=== PATIENT | male | born 1960 | race Caucasian/White ===

== ENCOUNTER → 2016-11-10 | Outpatient (CLI) | payer BC ==
[~2016-11-10] MED LIST: AMLO-110 PO; AMT50 PO; ASPCH81 PO; DICL50TA3 PO; GABA1CAP4 PO; METO25TA56 PO; MULT-506 PO; OMEP40CA PO; SALI1SPR3
[2016-11-10 16:58] LABS: HEMATOCRIT 49.1 % (42-52); MEAN CELL VOLUME 91.6 fL (80-100); MEAN CORPUSCULAR HEMOGLOBIN 32.8 pg (25-34); MEAN CORPUSCULAR HGB CONC 35.8 g/dl (32-36); MEAN PLATELET VOLUME 10.7 fL (7.4-10.4); PLATELET COUNT 181 K/uL (130-400); RED BLOOD COUNT 5.36 M/uL (4.7-6.1)
[2016-11-10 17:07] LABS: BLOOD UREA NITROGEN 18 mg/dl (7-18); BUN/CREATININE RATIO 17.5 (10-20); CALCIUM 9.5 mg/dl (8.5-10.1); CARBON DIOXIDE 29 mmol/L (21-32); CHLORIDE 102 mmol/L (98-107); GLUCOSE 155 mg/dl (70-99); POTASSIUM 4.2 mmol/L (3.5-5.1); SODIUM 138 mmol/L (136-145); URIC ACID 5.6 mg/dl (2.6-7.2)
[2016-11-10 17:17] LABS: CHOLESTEROL 137 mg/dl (0-200); CHOLESTEROL/HDL RATIO 3.2; HDL CHOLESTEROL 43 mg/dl; LDL CHOLESTEROL CALCULATED 67 mg/dl; PROSTATE SPECIFIC ANTIGEN 0.177 ng/ml (0.000-4.000); TRIGLYCERIDES 133 mg/dl (0-150); VERY LOW DENSITY LIPOPROT CALC 27 mg/dl
== END | disposition home or self-care (01) ==
LOC: C.LABBC 12:23
PROVIDERS: ATTEND Internal Medicine Cardiovascular Disease
DX: N40.0 Benign prostatic hyperplasia without lower urinary tract symptoms (principal); M10.9 Gout, unspecified; I10 Essential (primary) hypertension

== ENCOUNTER → 2017-02-05 | Outpatient (CLI) | payer BC ==
[~2017-02-05] MED LIST changes: -AMT50 PO
--- NOTE | 2017-02-05 10:57 | DIAGNOSTIC IMAGING REPORT ---
CERVICAL SPINE MRI HISTORY: Neck pain. CORD COMPRESSION TECHNIQUE: Multiplanar multisequence MRI of the cervical spine was performed without the use of contrast. COMPARISON STUDY: Cervical spine MRI 07/26/2015. FINDINGS: Slight reversal of the normal lordotic curvature, unchanged. Alignment is intact. No fracture or subluxation. Prevertebral soft tissues and the C1-C2 interval are well-maintained. Cervical spinal cord demonstrates a normal signal intensity. Mild to moderate disc space narrowing at C5-C6, unchanged. C2-C3: No significant central canal or neural foraminal narrowing. C3-C4: Small broad-based posterior disc osteophyte complex with a focal central annular tear. This results in near complete effacement of the anterior thecal sac without significant cord deformity. No neural foraminal narrowing. C4-C5: Small broad-based posterior disc osteophyte complex resulting in partial effacement of the anterior thecal sac without cord deformity. No neural foraminal narrowing. C5-C6: No change in the left paracentral disc osteophyte complex which results in mild left anterior cord deformity. There is severe left and mild right neural foraminal narrowing, unchanged. C6-C7: Mild left-sided neural foraminal narrowing, unchanged. No significant central canal or right-sided neural foraminal narrowing. C7-T1: No significant central canal or neural foraminal narrowing. IMPRESSION: 1. Overall, no significant change in the multilevel cervical spondylosis as described above. This is most pronounced at the C5-C6 level. 2. Slight reversal of the normal lordotic curvature. Electronically signed by: Amado Tena M.D. 02/05/2017 10:56 AM Dictated Date/Time: 02/05/2017 10:47 AM
== END | disposition home or self-care (01) ==
LOC: C.MRIBC 09:49
PROVIDERS: ATTEND Orthopaedic Surgery Orthopaedic Surgery of the Spine
DX: M47.812 Spondylosis without myelopathy or radiculopathy, cervical region (principal)

== ENCOUNTER → 2017-06-01 | Outpatient (CLI) | payer BC ==
[2017-06-01 14:20] LABS: ESTIMATED AVERAGE GLUCOSE 103 mg/dl; HA1C FLAG Normal (Normal)
[2017-06-01 14:38] LABS: BLOOD UREA NITROGEN 16 mg/dl (7-18); BUN/CREATININE RATIO 16.4 (10-20); CALCIUM 9.1 mg/dl (8.5-10.1); CARBON DIOXIDE 26 mmol/L (21-32); CHLORIDE 102 mmol/L (98-107); GLUCOSE 110 mg/dl (70-99); SODIUM 136 mmol/L (136-145)
[2017-06-01 14:41] LABS: CHOLESTEROL 155 mg/dl (0-200); CHOLESTEROL/HDL RATIO 2.3; HDL CHOLESTEROL 67 mg/dl; LDL CHOLESTEROL CALCULATED 74 mg/dl; TRIGLYCERIDES 70 mg/dl (0-150); VERY LOW DENSITY LIPOPROT CALC 14 mg/dl
== END | disposition home or self-care (01) ==
LOC: C.LABBC 11:57
PROVIDERS: ATTEND Internal Medicine Cardiovascular Disease
DX: I10 Essential (primary) hypertension (principal); R73.9 Hyperglycemia, unspecified

== ENCOUNTER → 2017-09-25 | Outpatient (CLI) | payer OTHER ==
--- NOTE | 2017-09-25 18:15 | DIAGNOSTIC IMAGING REPORT ---
MRI OF THE CERVICAL SPINE WITHOUT IV CONTRAST CLINICAL HISTORY: Cervicalgia. COMPARISON STUDY: MRI of the cervical spine dated 02/05/2017. TECHNIQUE: MRI of the cervical spine is performed utilizing various T1 and T2 weighted sequences in the axial and sagittal planes. IV contrast was not administered for this examination. The examination is modestly compromised by motion artifact. FINDINGS: Cervical spine: Vertebral body height and alignment are maintained throughout the cervical spine. There is straightening of cervical lordosis with reversal centered at C5. The atlantodental articulation appears maintained. The spinous processes are intact. No destructive bony lesion is identified. Intervertebral discs: Mild degenerative disc desiccation is seen throughout the cervical spine. There is moderate loss of height at C5-C6. Only mild loss of height is seen at the remaining cervical levels. Spinal cord: The cervical spinal cord is normal in morphology and signal intensity. C2-C3: A tiny posterior disc osteophyte complex is of no consequence. The central canal and neural foramina are patent. C3-C4: A posterior disc osteophyte complex eccentric to the right abuts the ventral cord. The neural foramina are widely patent. C4-C5: Unremarkable. C5-C6: A posterior disc osteophyte complex eccentric to left effaces the ventral cord. In conjunction with uncovertebral and facet arthropathy, this causes severe left-sided neural foraminal stenosis. The right neural foramen appears patent. C6-C7: Uncovertebral and facet arthropathy cause mild left neural foraminal stenosis. C7-T1: Unremarkable. Soft tissues: The prevertebral and paraspinous soft tissues are within normal limits. Brain parenchyma: Partially imaged brain parenchyma. The skull base is normal as visualized. The cerebellar tonsils are normal in configuration. IMPRESSION: 1. Mild multilevel cervical spondylosis as detailed above, greatest at C5-C6 where a posterior disc osteophyte complex effaces the ventral cord. See discussion for detailed level by level analysis. 2. These findings are overall similar to the 02/05/2017 examination. 3. No destructive bony lesion is seen. Dictated: 09/25/2017 5:10 PM Transcribed: 09/25/2017 6:14 PM [place] Electronically signed by: Doe Paige M.D. 09/25/2017 6:27 PM Dictated Date/Time: 09/25/2017 5:10 PM
== END | disposition home or self-care (01) ==
LOC: C.MRIBC 15:13
PROVIDERS: ATTEND Neurological Surgery
DX: M54.2 Cervicalgia (principal); M79.603 Pain in arm, unspecified; M50.30 Other cervical disc degeneration, unspecified cervical region

== ENCOUNTER → 2018-01-12 | Outpatient (CLI) | payer OTHER ==
[~2018-01-12] MED LIST changes: -DICL50TA3 PO; +GABA-1219 PO; -GABA1CAP4 PO; +IBUP-1050 PO; +SALI-3; -SALI1SPR3
[2018-01-12 17:27] LABS: BLOOD UREA NITROGEN 19 mg/dl (7-18); CALCIUM 8.9 mg/dl (8.5-10.1); CARBON DIOXIDE 27 mmol/L (21-32); CHOLESTEROL 148 mg/dl (0-200); CREATININE 1.05 mg/dl (0.60-1.40); GLUCOSE 107 mg/dl (70-99); LDL CHOLESTEROL CALCULATED 77 mg/dl; POTASSIUM 4.2 mmol/L (3.5-5.1); SODIUM 138 mmol/L (136-145)
[2018-01-13 06:34] LABS: HEMOGLOBIN A1C 5.2 % (4.5-5.6)
== END | disposition home or self-care (01) ==
LOC: C.LABBC 12:08
PROVIDERS: ATTEND Internal Medicine Cardiovascular Disease
DX: I10 Essential (primary) hypertension (principal); R73.9 Hyperglycemia, unspecified; E78.00 Pure hypercholesterolemia, unspecified